=== PATIENT | male | born 1990 | race Caucasian/White ===

== ENCOUNTER 2016-06-18 21:38 | Emergency (ER) | payer SELFPAY | END 2016-06-18 22:35 | disposition left against medical advice (07) | LOC: JD.ED 21:38 | DX: Z53.21 Procedure and treatment not carried out due to patient leaving prior to being seen by health care provider (principal) ==

== ENCOUNTER 2016-06-21 12:49 | Emergency (ER) | payer SELFPAY ==
[2016-06-21] MEDS ORDERED: Sodium Chloride 0.9% 10 ML Syringe FLUSH PRN (13:30)
[2016-06-21] MEDS ORDERED: Sodium Chloride 0.9% 1,000 ML IV ONE (13:30)
--- NOTE | 2016-06-21 13:38 | EDM.PDOC ---
ED HISTORY OF PRESENT ILLNESS - General Chief Complaint: Cardiovascular Problem Stated Complaint: CHEST PAIN/VOMITING BLOOD Time Seen by Provider: 06/21/16 13:38 Source of Information: Reports: Patient History Limitations: Reports: No limitations - History of Present Illness INITIAL COMMENTS - FREE TEXT/NARRATIVE: The patient presents for evaluation and treatment of hematemesis and chest pain. The patient reports that he has been experiencing chest pain for the last 3 days. He describes as a sharp pain in the middle of his chest. He states that laying in on his side improves the pain. He says that involves his entire upper chest. He reports associated symptoms of shortness of breath. patient also reports that he has been coughing up and vomiting of blood for the last 3 weeks. Unable to tell exactly how much blood is in his vomit or his sputum. He states that it is "a decent amount". He denies any dizziness. He reports that on Sunday he had a syncopal episode. Significant other is present and states she last saw him standing in the bedroom. Later she found him laying on the floor. She is unsure how long he was out for. Paramedics arrived and evaluated him. No transfer the hospital after paramedics evaluated. Patient reports that he has now developed numbness and tingling into his hands and his feet. He also reports chills. It is never anything like this before. He denies any fevers, abdominal pain or bloody stools. He states that he has had diarrhea the last couple days. He is unable to tell me how man y episodes of diarrhea. He denies any recent travel. He denies any recent illness. Patient reports he smokes one half pack a day for 7 years. He states that he has a couple of beers socially. He denies any illicit drug use. Reviewing the patient's previous records he was in our ER on June 18. At that time he left AMA without being seen. Appears EMS call was after he left the hospital. Timing/Duration: Reports: Getting worse Location, General: Reports: chest - Related Data Allergies/ADRs: Allergies Allergy/AdvReac Type Severity Reaction Status Date / Time sulfamethoxazole Allergy Hives Verified 06/21/16 13:02 [From ] trimethoprim [From ] Allergy Hives Verified 06/21/16 13:02 Home Meds: Home Meds Ondansetron [Zofran ODT] 4 mg PO Q6H PRN #20 tab.dis 06/21/16 [Rx] Past Medical History - Past Health History Medical/Surgical History: Denies Medical/Surgical History Psychiatric History: Reports: ADHD - Past Surgical History Musculoskeletal Surgical History: Reports: Other (see below) Other Musculoskeletal Surgeries/Procedures:: surgery to repair fractured tibia and fibula Social & Family History - Family History Family Medical History: Noncontributory - Tobacco Use Smoking Status *Q: Former Smoker Years of Tobacco use: 8 Packs/Tins Daily: 0.5 - Caffeine Use Caffeine Use: Reports: None - Recreational Drug Use Recreational Drug Use: No ED ROS GENERAL - Review of Systems Review Of Systems: See Below Constitutional: Reports: chills, malaise, weakness, fatigue, decreased appetite. Denies: fever, weight loss Respiratory: Reports: shortness of breath, hemoptysis Cardiovascular: Reports: Chest pain, Syncope GI/Abdominal: Reports: Diarrhea, Hematemesis, Nausea, Vomiting. Denies: Abdominal pain, Hematochezia, Melena Neurological: Reports: numbness, syncope, tingling. Denies: dizziness ED EXAM, GENERAL - Physical Exam Exam: See Below Exam Limited By: No limitations General Appearance: alert, WD/WN, no apparent distress Eye Exam: bilateral eye: PERRL Ears: normal external exam, normal canal, hearing grossly normal, normal TMs Nose: normal inspection Throat/Mouth: Normal inspection, Normal lips, Normal teeth, Normal gums, Normal oropharynx, Normal voice, No airway compromise Neck: normal inspection. No: lymphadenopathy (L), lymphadenopathy (R) Respiratory/Chest: no respiratory distress, lungs clear, normal breath sounds Cardiovascular: normal peripheral pulses, regular rate, rhythm, no murmur Peripheral Pulses: 2+: radial (L), radial (R) GI/Abdominal: normal bowel sounds, soft, non tender Neurological: alert, oriented, normal cognition, normal gait Psychiatric: normal affect, normal mood Skin Exam: Warm, Dry, Normal color EKG INTERPRETATION EKG Date: 06/21/16 Time: 13:15 Rhythm: NSR Rate (beats/min): 78 [place]: normal P-wave: present QRS: normal ST-T: normal QT: normal EKG Interpretation Comments: mild ST elevation in V2 and V3. NSR at [address] segment changes. Reviewed by deyaelf and Dr. Meyers. Course - Vital Signs Last Recorded V/S: Last Vital Signs Temp 36.8 C 06/21/16 12:57 Pulse 71 06/21/16 16:31 Resp 12 06/21/16 16:31 BP 121/76 06/21/16 16:31 Pulse Ox 99 06/21/16 16:31 - Orders/Labs/Meds Orders: Active Orders 24 hr Category Date Time Status Cardiac Monitoring [RC] . DIRECTED Care 06/21/16 13:30 Active EKG 12 Lead [EKG Documentation Completion] [RC] STAT Care 06/21/16 13:30 Active Peripheral IV Care [RC] . DIRECTED Care 06/21/16 13:30 Active Chest 2V [CR] Stat Exams 06/21/16 13:30 Taken Head wo Cont [CT] Stat Exams 06/21/16 13:38 Taken Peripheral IV Insertion Adult [OM.PC] Routine Oth 06/21/16 13:29 Ordered Labs: Laboratory Tests 06/21/16 06/21/16 06/21/16 Range/Units 13:10 13:10 15:30 WBC 7.41 (4.23-9.07) K/mm3 RBC 4.94 (4.63-6.08) M/mm3 Hgb 15.3 (13.7-17.5) gm/L Hct 44.2 (40.1-51.0) % MCV 89.5 (79.0-92.2) fl MCH 31.0 (25.7-32.2) pg MCHC 34.6 (32.2-35.5) g/dl RDW Std Deviation 40.2 (35.1-43.9) fL Plt Count 232 (163-337) K/mm3 MPV 10.6 (9.4-12.3) fl Neut % (Auto) 51.3 (34.0-67.9) % Lymph % (Auto) 33.2 (21.8-53.1) % [place] % (Auto) 11.1 (5.3-12.2) % Eos % (Auto) 3.8 (0.8-7.0) Baso % (Auto) 0.3 (0.1-1.2) % Neut # 3.81 (1.78-5.38) K/mm3 Lymph # 2.46 (1.32-3.57) K/mm3 [place] # 0.82 (0.30-0.82) K/mm3 Eos # 0.28 (0.04-0.54) K/mm3 Baso # 0.02 (0.01-0.08) K/mm3 Sodium 140 (136-145) mEq/L Potassium 3.9 (3.5-5.1) mEq/L Chloride 106 (98-107) mEq/L Carbon Dioxide 25 (21-32) mEq/L Anion Gap 12.9 (5-15) BUN 7 (7-18) mg/dL Creatinine 0.8 (0.7-1.3) mg/dL Est Cr Clr Drug Dosing 134.19 mL/min Estimated GFR (MDRD) > 60 (>60) mL/min BUN/Creatinine Ratio 8.8 L (14-18) Glucose 96 (74-106) mg/dL Calcium 8.3 L (8.5-10.1) mg/dL Total Bilirubin 0.9 (0.2-1.0) mg/dL AST 19 (15-37) U/L ALT 23 (16-63) U/L Alkaline Phosphatase 69 (46-116) U/L Troponin I < 0.017 (0.00-0.056) ng/mL Total Protein 7.0 (6.4-8.2) g/dl Albumin 3.5 (3.4-5.0) g/dl Globulin 3.5 gm/dL Albumin/Globulin Ratio 1.0 (1-2) Lipase 121 (73-393) U/L Urine Color (Yellow) Urine Appearance (Clear) Urine pH (5.0-8.0) Ur Specific [place] (1.005-1.030) Urine Protein (Negative) Urine Glucose (UA) (Negative) Urine Ketones (Negative) Urine Occult Blood (Negative) Urine Nitrite (Negative) Urine Bilirubin (Negative) Urine Urobilinogen (0.2-1.0) Ur Leukocyte Esterase (Negative) Urine RBC (0-5) /hpf Urine WBC (0-5) /hpf Urine WBC Clumps (NOT SEEN) /hpf Ur Epithelial Cells (0-5) /hpf Urine Bacteria (FEW) /hpf Urine Mucus (FEW) /hpf Urine Yeast (NOT SEEN) Urine Opiates Screen Negative (NEGATIVE) Ur Buprenorphine Scrn Negative (NEGATIVE) Ur Oxycodone Screen Negative (NEGATIVE) Urine Methadone Screen Negative (NEGATIVE) Ur Propoxyphene Screen Negative (NEGATIVE) Ur Barbiturates Screen Negative (NEGATIVE) Ur Tricyclics Screen Negative (NEGATIVE) Ur Phencyclidine Scrn Negative (NEGATIVE) Ur Amphetamine Screen Negative (NEGATIVE) U Methamphetamines Scrn Negative (NEGATIVE) U Benzodiazepines Scrn Negative (NEGATIVE) U Cocaine Metab Screen Negative (NEGATIVE) U Marijuana (THC) Screen Negative (NEGATIVE) Ethyl Alcohol 0.10 (0.00) gm% 06/21/16 Range/Units 15:30 WBC (4.23-9.07) K/mm3 RBC (4.63-6.08) M/mm3 Hgb (13.7-17.5) gm/L Hct (40.1-51.0) % MCV (79.0-92.2) fl MCH (25.7-32.2) pg MCHC (32.2-35.5) g/dl RDW Std Deviation (35.1-43.9) fL Plt Count (163-337) K/mm3 MPV (9.4-12.3) fl Neut % (Auto) (34.0-67.9) % Lymph % (Auto) (21.8-53.1) % [place] % (Auto) (5.3-12.2) % Eos % (Auto) (0.8-7.0) Baso % (Auto) (0.1-1.2) % Neut # (1.78-5.38) K/mm3 Lymph # (1.32-3.57) K/mm3 [place] # (0.30-0.82) K/mm3 Eos # (0.04-0.54) K/mm3 Baso # (0.01-0.08) K/mm3 Sodium (136-145) mEq/L Potassium (3.5-5.1) mEq/L Chloride (98-107) mEq/L Carbon Dioxide (21-32) mEq/L Anion Gap (5-15) BUN (7-18) mg/dL Creatinine (0.7-1.3) mg/dL Est Cr Clr Drug Dosing mL/min Estimated GFR (MDRD) (>60) mL/min BUN/Creatinine Ratio (14-18) Glucose (74-106) mg/dL Calcium (8.5-10.1) mg/dL Total Bilirubin (0.2-1.0) mg/dL AST (15-37) U/L ALT (16-63) U/L Alkaline Phosphatase (46-116) U/L Troponin I (0.00-0.056) ng/mL Total Protein (6.4-8.2) g/dl Albumin (3.4-5.0) g/dl Globulin gm/dL Albumin/Globulin Ratio (1-2) Lipase (73-393) U/L Urine Color Yellow (Yellow) Urine Appearance Clear (Clear) Urine pH 7.0 (5.0-8.0) Ur Specific [place] 1.020 (1.005-1.030) Urine Protein Negative (Negative) Urine Glucose (UA) Negative (Negative) Urine Ketones Negative (Negative) Urine Occult Blood Negative (Negative) Urine Nitrite Negative (Negative) Urine Bilirubin Negative (Negative) Urine Urobilinogen 0.2 (0.2-1.0) Ur Leukocyte Esterase Negative (Negative) Urine RBC 0-5 (0-5) /hpf Urine WBC 0-5 (0-5) /hpf Urine WBC Clumps Not seen (NOT SEEN) /hpf Ur Epithelial Cells Not seen (0-5) /hpf Urine Bacteria Few (FEW) /hpf Urine Mucus Not seen (FEW) /hpf Urine Yeast Not seen (NOT SEEN) Urine Opiates Screen (NEGATIVE) Ur Buprenorphine Scrn (NEGATIVE) Ur Oxycodone Screen (NEGATIVE) Urine Methadone Screen (NEGATIVE) Ur Propoxyphene Screen (NEGATIVE) Ur Barbiturates Screen (NEGATIVE) Ur Tricyclics Screen (NEGATIVE) Ur Phencyclidine Scrn (NEGATIVE) Ur Amphetamine Screen (NEGATIVE) U Methamphetamines Scrn (NEGATIVE) U Benzodiazepines Scrn (NEGATIVE) U Cocaine Metab Screen (NEGATIVE) U Marijuana (THC) Screen (NEGATIVE) Ethyl Alcohol (0.00) gm% Meds: Medications Discontinued Medications Generic Name Dose Route Start Last Admin Trade Name Freq PRN Reason Stop Dose Admin Sodium Chloride 1,000 mls @ 999 mls/hr 06/21/16 13:30 06/21/16 13:39 Normal Saline IV 06/21/16 14:30 999 mls/hr ONETIME ONE Administration Sodium Chloride 10 ml 06/21/16 13:30 06/21/16 13:38 Saline Flush FLUSH 10 ml ASDIRECTED PRN Administration Keep Vein Open - Radiology Interpretation Free Text/Narrative:: Chest xray 2 view shows no acute intrathoracic process. Head Ct without contrast impression per [facility] :1. No acute intracerebral abnormality or injury. 2. Normal brain. - Re-Assessments/Exams Free Text/Narrative Re-Assessment/Exam: 06/21/16 15:15 Labs returned. WBC is 7.41, hgb is 15.3 and plts are 232 Sodium is 140, potassium is 3.9 and chloride is 106. Anion gap is 12.9. Glucose is 96 AST is 19, ALT is 23 and alk phos is 69 Trop is normal at <0.017 lipase is normal at 121 Etoh is 0.10 UA is negative for lueks, nitrites, blood, ketones and protein urine drug screen is negative. Suspect small susanna jones tear causing chest discomfort and hemopytsis. I question the patient's reported alcohol consumption as an underlying cause. Will have him follow-up in clinic. No alcohol. Zofran as needed for nausea. Reviewed the labs, ekg and imaging with the patient. Will discharge home at this time. Departure - Departure Time of Disposition: 15:27 Disposition: Home, Self-Care 01 Condition: good Clinical Impression: Susanna-Jones tear Prescriptions: Ondansetron [Zofran ODT] 4 mg PO Q6H PRN #20 tab.dis PRN Reason: Nausea Instructions: Cyclic Vomiting Syndrome, Pediatric Referrals: PCP,None [Primary Care Provider] - Danette Potter PA-C [Physician Tram Operator] - Cony Hogan PA [Physician Tram Operator] - Forms: ED Department Discharge Additional Instructions: Rest and drink plenty of fluids. OTC tylenol as needed for pain and symptom relief. Zofran 1 tab sublingual every 6-8 hours prn nausea. Follow-up with family [facility] in 2 weeks. Recommend Danette Lebron or Cony Hogan. Call [phone] to schedule with one of them. Avoid alcohol. Please return to the ER should your symptoms change or worsen. - My Orders Last 24 Hours: My Active Orders 06/21/16 13:29 Peripheral IV Insertion Adult [OM.PC] Routine 06/21/16 13:30 Cardiac Monitoring [RC] . DIRECTED EKG 12 Lead [EKG Documentation Completion] [RC] STAT Peripheral IV Care [RC] . DIRECTED Chest 2V [CR] Stat 06/21/16 13:38 Head wo Cont [CT] Stat - Assessment/Plan Last 24 Hours: My Active Orders 06/21/16 13:29 Peripheral IV Insertion Adult [OM.PC] Routine 06/21/16 13:30 Cardiac Monitoring [RC] . DIRECTED EKG 12 Lead [EKG Documentation Completion] [RC] STAT Peripheral IV Care [RC] . DIRECTED Chest 2V [CR] Stat 06/21/16 13:38 Head wo Cont [CT] Stat
[2016-06-21 16:35] VITALS: BP 121/76
--- NOTE | 2016-06-23 08:46 | CR ---
Chest: Two views of the chest were obtained. Comparison: No previous study. Small nodule noted within the left upper chest. Lungs otherwise are clear. Heart size and mediastinum are within normal limits. Bony structures are unremarkable. Impression: 1. Small nodule within the left upper chest. Given the patient's age this is likely incidental although noncontrast chest CT could be obtained to further evaluate. Diagnostic code #3
--- NOTE | 2016-06-23 09:15 | CT ---
Head CT Technique: Multiple axial sections through the brain were obtained. Intravenous contrast was not utilized. Comparison: No previous intracranial imaging. Findings: Ventricles along with basal cisterns and sulci over the convexities are within normal limits for the patient's age. No abnormal parenchymal densities are seen. No evidence of intracranial hemorrhage. No midline shift or mass effect is seen. Bone window settings were reviewed which show no discrete calvarial abnormality. Visualized sinuses are clear. Mastoid sinuses and middle ear cavities are clear. Impression: 1. No abnormality is identified on noncontrast head CT study. Diagnostic code #1 I agree with preliminary report issued by [facility] (preliminary report dictated on 06/21/16, 3:05 PM Central Time)
== END 2016-06-21 16:32 | disposition home or self-care (01) ==
LOC: JD.ED 12:49
DX: K22.6 Gastro-esophageal laceration-hemorrhage syndrome (principal); Z88.8 Allergy status to other drugs, medicaments and biological substances; Z98.890 Other specified postprocedural states; Z87.891 Personal history of nicotine dependence
CPT/HCPCS: 36415; 70450; 71020; 80053; 81001; 83690; 84484; 85025; 93005; 96360; 99285; G0478; G0480; J7040; J7050; 80306; 99283

== ENCOUNTER 2016-06-24 21:06 | Emergency (ER) | payer SELFPAY ==
[2016-06-24 21:13] VITALS: BP 131/86
== END 2016-06-24 21:50 | disposition left against medical advice (07) ==
LOC: JD.ED 21:06
DX: Z53.21 Procedure and treatment not carried out due to patient leaving prior to being seen by health care provider (principal)

== ENCOUNTER 2017-01-06 22:35 | Emergency (ER) | payer SELFPAY ==
[2017-01-06 22:49] VITALS: BP 154/93
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
[2017-01-06] MEDS ORDERED: Lidocaine 1% 10 ML MDV INJECT ONE (23:46)
[2017-01-07] MEDS ORDERED: Acetaminophen 325 MG Tab PO ONE (00:21)
[2017-01-07] MEDS ORDERED: Acetaminophen 325 MG Tab ONE (00:25)
[2017-01-07] MEDS ORDERED: Acetaminophen/HYDROcodone 325-5 MG Tab PO ONE (01:29)
[2017-01-07] MEDS ORDERED: Hypromellose 0.5% Ophth Soln 15 ML Bottle EYEBOTH ONE (02:06)
[2017-01-07] MEDS ORDERED: Hypromellose 0.5% Ophth Soln 15 ML Bottle EYELF SCH (02:15)
--- NOTE | 2017-01-08 10:08 | CT ---
CT facial bones Technique: Multiple axial sections through the facial bones were obtained. Reconstructed coronal and sagittal images were reviewed. Comparison: No prior facial bone CT. Findings: Mildly comminuted and minimally displaced nasal bone fractures are seen. No additional facial bone fracture is identified. Soft tissue swelling is noted around the nose. Sinuses are clear. Impression: 1. Comminuted and slightly displaced nasal bone fracture with overlying soft tissue swelling. 2. No additional abnormality is identified on CT study of the facial bones. Diagnostic code #3 Agree with preliminary report issued by [id number] ([facility] preliminary report dictated on 01/07/17, 1:15 AM Central Time)
--- NOTE | 2017-01-08 10:08 | CT ---
Head CT Technique: Multiple axial sections through the brain were obtained. Intravenous contrast was not utilized. Comparison: Previous head CT study of 06/21/16. Findings: Ventricles along with basal cisterns and sulci over the convexities are within normal limits for the patient's age. No abnormal parenchymal densities are seen. No evidence of intracranial hemorrhage. No midline shift or mass effect is seen. Bone window settings were reviewed which show no acute calvarial abnormality. Visualized sinuses are clear. Impression: 1. Nothing acute is identified on noncontrast head CT study. No significant change is identified from prior head CT exam. Diagnostic code #1 Agree with preliminary report issued by [facility] ([facility] preliminary report dictated on 01/07/17, 1:12 AM Central Time)
== END 2017-01-07 02:21 | disposition home or self-care (01) ==
LOC: JD.ED 22:35
DX: S06.0X1A Concussion with loss of consciousness of 30 minutes or less, initial encounter (principal); S02.2XXA Fracture of nasal bones, initial encounter for closed fracture; S01.81XA Laceration without foreign body of other part of head, initial encounter; S04.52XA Injury of facial nerve, left side, initial encounter; F17.210 Nicotine dependence, cigarettes, uncomplicated; Z87.442 Personal history of urinary calculi; Z88.2 Allergy status to sulfonamides; Z88.1 Allergy status to other antibiotic agents; Y04.0XXA Assault by unarmed brawl or fight, initial encounter
CPT/HCPCS: 12011; 70450; 70486; 99284; A9270